=== PATIENT | male | born 1965 | race Caucasian/White ===

== ENCOUNTER 2019-03-16 20:24 | Emergency (ER) | payer MEDICAID ==
[~2019-03-16] VITALS: Ht 172.7 cm; Wt 90.7 kg
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
[2019-03-16] MEDS ORDERED: IBUPROFEN 800 MG TABLET PO ONE (21:30)
[2019-03-16] MEDS ORDERED: NEOMY/BACITRA/POLYMYXIN B OINT UD PACKET TP ONE ×2 (21:30→21:37)
[2019-03-16] MEDS ORDERED: IBUPROFEN 800 MG TABLET ONE (21:38)
--- NOTE | 2019-03-16 21:40 | NUR ---
PT ELOPED FROM THE ER WITHOUT RECEIVING TREATMENT ERMD AWARE DISCHARGE INSTRUCTIONS AND PRESCRIPTION MADE AVAILABLE IN PT FILE
== END 2019-03-16 22:03 | disposition left against medical advice (07) ==
LOC: ER 20:27
DX: S41.112A Laceration without foreign body of left upper arm, initial encounter (principal); F32.9 Major depressive disorder, single episode, unspecified; F17.200 Nicotine dependence, unspecified, uncomplicated; V03.99XA Pedestrian with other conveyance injured in collision with car, pick-up truck or van, unspecified whether traffic or nontraffic accident, initial encounter; Y93.89 Activity, other specified; Y92.89 Other specified places as the place of occurrence of the external cause; Y99.8 Other external cause status
CPT/HCPCS: A4663